=== PATIENT | male | born 1940 | race Caucasian/White ===

== ENCOUNTER 2017-05-16 11:10 | Day surgery (SDC) | payer OTHER ==
[~2017-05-16] VITALS: Ht 167.6 cm; Wt 67.9 kg
[2017-05-16] VITALS (19 sets, daily range): BP systolic 105–137; BP diastolic 50–72; PULSE 52–72; RESP 12–22; Ht 167.6 cm; Wt 67.9 kg
[2017-05-16] MEDS ORDERED: GABA100C14 PO (11:46)
[2017-05-16] MEDS ORDERED: NIZ30CR2 TOP (11:46)
[2017-05-16] MEDS ORDERED: SOD CHLORIDE 0.9% 1,000 ML IV ONE (12:00)
[2017-05-16] MEDS ORDERED: CEFAZOLIN 2 GM/50 ML (PMX) 50 ML IVPB ONE (12:00)
[2017-05-16] MEDS ORDERED: BUPIVACAINE 0.25% (MPF) 30 ML INJ ONE (13:55)
[2017-05-16] MEDS ORDERED: FENTAnyl 50 MCG/ML VIAL ONE (14:15)
[2017-05-16] MEDS ORDERED: MIDAZOLAM 1 MG/ML 2 ML INJ ONE (14:15)
[2017-05-16] MEDS ORDERED: ONDANSETRON 4 MG INJ ONE (14:58)
[2017-05-16] MEDS ORDERED: NEOSTIGMINE 3 MG/3 ML SYRINGE ONE (14:59)
[2017-05-16] MEDS ORDERED: LIDOCAINE 2% (SDV) 5 ML INJ ONE (14:59)
[2017-05-16] MEDS ORDERED: ROCURONIUM 50 MG INJ ONE (14:59)
[2017-05-16] MEDS ORDERED: ETOMIDATE 20 MG INJ ONE (14:59)
[2017-05-16] MEDS ORDERED: GLYCOPYRROLATE 0.4 MG INJ ONE (14:59)
[2017-05-16] MEDS ORDERED: FENTAnyl 50 MCG/ML VIAL IV PRN (15:00)
[2017-05-16] MEDS ORDERED: ONDANSETRON 4 MG INJ IV PRN (15:00)
[2017-05-16] MEDS ORDERED: HYDROCODONE/APAP (5/325) TAB PO ONE (15:00)
[2017-05-16] MEDS ORDERED: MEPERIDINE 25 MG INJ IV PRN (15:00)
[2017-05-16] MEDS ORDERED: DIPHENHYDRAMINE 50 MG INJ IV PRN (15:00)
[2017-05-16] MEDS ORDERED: CEFAZOLIN 1 GM INJ ONE (15:03)
--- NOTE | 2017-05-16 15:04 | OPR ---
Date/Time of Note Date/Time of Note DATE: 05/16/17 TIME: 15:00 Operative Report Procedure Date: May 16, 2017 Preoperative Diagnosis RIH Postoperative Diagnosis RIH Operation Performed open RIH repair with mesh ultrapro medium right ilioinguinal nerve block Surgeon: Hayes MANZANARES Procedure Description Patient is taken to the OR prepped and draped in usual sterile fashion. Surgical timeout was performed IV antibiotics are given. Right oblique inguinal incision is made with a 10 blade, dissection cautery is taken to the fascia. External oblique fascia is incised with a 15 blade. This incision is extended medially inferiorly lateral superiorly with Metzenbaum scissors cord structures identified and encircled with a Baxley drain. Direct hernia is identified and reduced. This portion of the Ultram for hernia system mesh is secured in place with a running 0 Prolene from the pubic tubercle along the shelving edge of the inguinal ligament. Superiorly to the internal oblique this is secured with interrupted 3-0 Vicryl. Onlay mesh is secured in a similar fashion with a running 0 Prolene from the pubic tubercle along the shelving edge of inguinal ligament. Strep surgery created and reapproximated around the cord structures to recreate the inguinal ring. This is secured in place with interrupted 0 Prolene. Onlay mesh is secured to the internal oblique with interrupted 3-0 Vicryl. Extremity fascia is closed with running 3- 0 Vicryl. Brandon's was closed with interrupted 3-0 Vicryl. Skin is closed using skin momo. Local anesthesia is injected into the incision site. Right ilioinguinal nerve block is performed with identification of a position 2 cm medial and inferior to the ASIS. Using a fatty motion local anesthesia injected. Dressing applied Hayes MANZANARES May 16, 2017 15:04
[2017-05-16] MEDS ORDERED: OXYCODONE/ACETAMINOPHEN (10/325) TAB PO ONE (16:30)
== END 2017-05-16 17:20 | disposition home or self-care (01) ==
LOC: SDS 11:10
PROVIDERS: ATTEND Surgery
DX: K40.90 Unilateral inguinal hernia, without obstruction or gangrene, not specified as recurrent (principal)
CPT/HCPCS: 49505; J0690; J2250; J2405; J2710; J3010